=== PATIENT | female | born 1950 | race Hispanic/Latino ===

== ENCOUNTER → 2019-12-19 | Outpatient (CLI) | payer MEDICARE ==
[~2019-12-19] MED LIST: CIPRO500 MG PO; IBUPROFEN600 MG PO; LOSARTAN POTASS25 MG PO; METFORMIN HCL500 MG PO; NO MEDS; OMEPRAZOLE40 MG PO; REGADENOSON 0.4 MG/5 ML SYR IV ONE; SIMVASTATIN40 MG PO; ULTRAM50 MG PO
--- NOTE | 2019-12-19 17:38 | Myoview Stress Test ---
DATE OF STUDY: 12/19/2019 08:45:00 Stress Test - Treadmill ONLY PROCEDURE TITLE: Rest/stress single isotope SPECT imaging with pharmacologic stress and gated SPECT imaging. INDICATION: Preoperative evaluation. PROCEDURE IN DETAIL: Pharmacologic stress testing was performed with regadenoson per protocol. The heart rate was 64 beats per minute at rest and increased to 93 beats per minute during the regadenoson infusion. The resting blood pressure was 144/79 mmHg and it increased to 161/55 mmHg, which is a normal response. The resting electrocardiogram demonstrated normal sinus rhythm. There were no ST-segment changes suggestive of myocardial ischemia. The resting electrocardiogram demonstrated normal sinus rhythm. There were no ST-segment changes suggestive of myocardial ischemia. The patient denied any symptoms. Next, myocardial perfusion imaging was performed at rest following the injection of 11 mCi of tetrofosmin. At peak pharmacologic effect, the patient was injected with 1.3 mCi of tetrofosmin. Gated post-stress tomographic imaging was performed. FINDINGS: The overall quality of study is fair. Left ventricular cavity is normal size on the rest and stress studies. SPECT images demonstrate homogeneous tracer distribution throughout the myocardium. Gated SPECT imaging reveals normal myocardial thickening and wall motion. The left ventricular ejection fraction was calculated to be 68%. IMPRESSION: Myocardial perfusion imaging is normal. Overall left ventricular systolic function was normal without regional wall motion abnormalities. Brynn Domínguez MD ABS/MODL /[id number]
== END ==
LOC: NM 08:27
PROVIDERS: ATTEND Internal Medicine
DX: R07.9 Chest pain, unspecified (principal)
CPT/HCPCS: 78452; 93017; A9502; J2785